=== PATIENT | female | born 1990 | race Hispanic/Latino ===

== ENCOUNTER 2018-05-13 07:51 | Inpatient (IN) | payer OTHER, SELFPAY ==
[2018-05-13] MEDS ORDERED: Promethazine HCl 25 MG/ML VIAL IM PRN (08:24)
[2018-05-13] MEDS ORDERED: NS / Oxytocin 40 units/1000ml 1,000 ML IV PRN (08:24)
[2018-05-13] MEDS ORDERED: Ibuprofen 800 MG TAB PO PRN (08:24)
[2018-05-13] MEDS ORDERED: Lidocaine 1% (PF) 30 ML VIAL SC PRN (08:24)
[2018-05-13] MEDS ORDERED: Ondansetron HCl/PF 4 MG/2 ML Vial IVP PRN ×2 (08:24→10:16)
[2018-05-13] MEDS ORDERED: Lidocaine 1% (PF) 30 ML VIAL ONE (08:26)
[2018-05-13] MEDS ORDERED: NS / Oxytocin 40 units/1000ml 0 ML ONE (08:26)
[2018-05-13] MEDS ORDERED: NS / Oxytocin 40 units/1000ml 1,000 ML ONE (08:27)
[2018-05-13] MEDS ORDERED: Lactated Ringer's 1,000 ML IV SCH (08:30)
[2018-05-13 08:49] LABS: Hemoglobin 12.5 g/dL (12.0-16.0); Mean Corpuscular HGB CONC 32.1 g/dL (32.0-36.0); Mean Corpuscular Hemoglobin 28.2 pg (27.0-31.0); Mean Corpuscular Volume 88.1 fL (78.0-98.0); Mean Platelet Volume 9.5 fL (7.4-10.4); Platelet Count 211 thou/uL (130-400); RBC Distribution Width 12.2 % (11.5-14.5); Red Blood Cell (RBC) Count 4.41 mill/uL (4.20-5.40); White Blood Cell (WBC) Count 9.9 thou/uL (4.8-10.8)
[2018-05-13 09:23] VITALS: BMI 31.2
[2018-05-13 09:32] LABS: Syphilis Antibody Nonreactive (Nonreactive); Syphilis Antibody Index 0.03 S/CO (<1.00 Non-Reactive)
--- NOTE | 2018-05-13 09:35 | PDOC.FPROB ---
FMR OB H&P: HPI - History of Present Illness Chief Complaint: Contractions Indentification: 27 year old History of Present Illness: 27 year old at 36.5 wks with ELYSSA of 06/05/2018 presents with contractions; onset two hours prior to arrival. Patient is from out of town. She received her care in [place]. She was in town for a [employer] function and was scheduled to return home today. Patient state that her has been uncomplicated. She has had three prior vaginal deliveries. Patient endorses moderate amount of vaginal bleeding. She denies vaginal discharge or LoF. Primary Care Physician: ALEJANDRA FMR OB H&P: Current - Care : 4 Para: 3 Gestational age: 36.5 wks Due date: 06/05/2018 - OB Labs Blood type: O RH: positive Antibody Screen: negative HIV: unknown RPR: unknown HepBsAg: unknown Quad screen: unknown Gonorrhea: unknown Chlamydia: unknown GBS: unknown FMR OB H&P: History - Past Medical History PMH: None - OB History OB History: x3 - Surgical History Sx History: Cholecystectomy Hernia repair x2 - Social History Social History: Denies alcohol, drug or tobacco use - Family History Family History: Noncontributory FMR OB H&P: Medications - Current Home Medications: Medication Instructions Recorded Confirmed Type 21/Iron Fu/Folic Acid 1 tablet PO DAILY 05/13/18 05/13/18 History [ Complete Caplet] Allergies/Adverse Reactions: Allergies Allergy/AdvReac Type Severity Reaction Status Date / Time No Known Allergies Allergy Unverified 05/13/18 08:31 FMR OB H&P: ROS - Review of Systems General: denies: fever/chills Eyes: denies: vision changes ENT: denies: nasal congestion, rhinorrhea Cardiovascular: denies: chest pain Gastrointestinal: denies: nausea, vomiting, diarrhea Genitourinary (Female): reports: vaginal pain, vaginal bleeding. denies: dysuria, vaginal discharge Neurologic: denies: seizures, loss of counsciousness Integumentary: denies: rash, lesions Hematologic/Lymphatic: denies: prolonged or excessive bleeding FMR OB H&P: Vital Signs - Maternal Vital signs: Vital Signs - First Documented Temp Resp BP 98.6 F 18 121/75 05/13/18 08:30 05/13/18 08:30 05/13/18 08:30 - Heart Tones Baseline: 140 Variability: moderate Acceleration: present Deceleration: absent Category: category 1 [place] contractions every: q4 min FMR OB H&P: Physical Exam - Physical Exam General: NAD, awake, alert and oriented HEENT: MMM, grossly normal vision, grossly normal hearing Heart: pulses present General: no respiratory distress Abdomen: soft, gravid Musculoskeletal: pulses present Neurological: no focal deficit Skin: no rash, capillary refill <2 seconds Lymphatic: no unusual bruising or bleeding Psychiatric: intact recent and remote memory, good judgement and insight, normal mood and affect - Pelvic Exam Vulva: normal hair distribution, no masses SVE: anterior lip/100/0 with bulging bag on presentation Presentation: Cephalic confirmed by bedside ultrasound FMR OB H&P: Results - Labs Lab results: Laboratory Results - last 24 hr 05/13/18 05/13/18 08:32 08:32 WBC 9.9 RBC 4.41 Hgb 12.5 Hct 38.9 MCV 88.1 MCH 28.2 MCHC 32.1 RDW 12.2 Plt Count 211 MPV 9.5 Blood Type O POSITIVE Antibody Screen NEGATIVE FMR OB H&P: A/P - Problem List (1) labor in third trimester Current Visit: Yes Status: Acute Code(s): O60.03 - LABOR WITHOUT DELIVERY, THIRD TRIMESTER Qualifiers: Fetus number: single or unspecified fetus (2) Current Visit: Yes Status: Acute Qualifiers: Weeks of gestation: 36 weeks Qualified Code(s): Z3A.36 - 36 weeks gestation of Assessment and Plan: 27 year old at 36.5 wks with ELYSSA of 06/05/2018 1. labor - Patient presented with contractions 2 hours prior to arrival - Patient noted to have bleeding on exam - Before cervical exam was performed, bedside ultrasound was done to confirm placental location; placenta right lateral and anterior. No concern for previa - Cervical exam performed by nurse and noted to be anterior lip/100/0 with bulging bag - Patient presenting from out of town without records available - Category I strip - Plan to [facility] with expectant management to follow 2. sIUP - See plan as above Disposition: Stable. Admit to L&D for expectant management. Discussion: Date/Time: 05/13/18 0932 This H&P was discussed with Dr. Mitchell who agrees with the above documentation and plan. Signature: Tawny Christian, PGY-2
[2018-05-13 09:40] LABS: Hep B Surf Ag Non-Reactive S/CO (NonReactive)
--- NOTE | 2018-05-13 09:49 | PDOC.OPDEL ---
OB Operative/Delivery Note Delivery Dr/Surgeon: Paula Christian Pre-Delivery Diagnosis: active labor Procedure/Post Delivery Dx: spontaneous vaginal delivery Weeks gestation: 36 (36.5 wks) Anesthesia: none - Findings A Sex: female - 1 min: 8 - 5 min: 9 - Additional Findings/Plan Placenta delivered: spontaneous Repaired Obstetrical Laceration: none Estimated blood loss: QBL 163 mL Compilations/Other Findings: Delivering Physician: Anahi Attending: Paula Procedure: Spontaneous Vaginal Delivery Anesthesia: None QBL: 163 mL Pre-op Diagnosis: 1. intrauterine in labor Post-op Diagnosis: 1. intrauterine , delivered Indications: A 27y/o female presents in active labor Delivery Note: This is 27yo F @ 36.5wks who delivered a viable F at 9:12 on 05/13/2018. Following an uneventful antepartum course, a vigorous female was delivered over an intact perineum in the occipitoanterior position. Anterior shoulder and then remainder of the body delivered. Nuchal cord x1, reduced. The head was held down and mouth and nares were bulb suctioned. Cord clamped and cut and cord blood collected. Placenta delivered intact with a 3 vessel cord noted. Fundal massage was performed and the fundus was firm. The cervix and vagina were inspected and found to be free of lacerations. Infant went to nursery in good condition for routine care. Apgars were 8/9 at 1 & 5 minutes, respectively. Patient tolerated delivery well and went to after routine recovery/care. Post delivery plan: routine recovery <Tawny Christian - Last Filed: 05/13/18 09:47> Attending Addendum - Attending Addendum Date/Time: 05/13/18 0958 I was present for the entire 2nd and 3rd stages of labor supervising Dr Christian for the spontaneous tsvd of Ms Almeida. <Kj Mitchell - Last Filed: 05/13/18 22:56>
[2018-05-13] MEDS ORDERED: Preparation H Ointment 28 GM TUBE PR PRN (10:16)
[2018-05-13] MEDS ORDERED: Milk Of Magnesia 30 ML UDCUP PO PRN (10:16)
[2018-05-13] MEDS ORDERED: Bisacodyl 10 MG SUPP PR PRN (10:16)
[2018-05-13] MEDS ORDERED: NS / Oxytocin 40 units/1000ml 1,000 ML IV SCH (10:16)
[2018-05-13] MEDS ORDERED: Lanolin Ointment 7 GM TUBE TOP PRN (10:16)
[2018-05-13] MEDS ORDERED: Adacel (T-DAP) 0.5 ML VIAL IM ONE (10:16)
[2018-05-13 11:41] LABS: HIV (1/2) Antibody/Antigen Non-Reactive (NonReactive); HIV 1/2 INDEX 0.08 S/CO (<1.00)
[2018-05-13] MEDS: Ibuprofen 800 MG TAB PO SCH ×2 (12:51→22:48)
[2018-05-13] MEDS: Docusate Calcium (SURFAK) 240 MG CAP PO SCH (22:48)
[2018-05-14] MEDS: Ibuprofen 800 MG TAB PO SCH ×3 (06:05→21:14)
--- NOTE | 2018-05-14 07:40 | PDOC.PP ---
Post Progress Note Post Day #: 1 Subjective: Patient doing well this AM. No significant overnight events. Lochia scant. Patient has been ambulating. PO intake tolerated: yes Flatus: yes Ambulation: yes Vital Signs (12 hours) Temp Pulse Resp BP 05/13/18 20:00 97.9 F 53 L 18 127/68 Weight Weight 85.275 kg - Physical Examination General: NAD Respiratory: non-labored breathing Abdominal: lochia (scant), no distention, appropriately TTP Extremities: negative homans (B) Skin: no rash Neurological: no gross focal deficits Psychiatric: A&Ox3, normal affect Result Diagrams: 05/13/18 08:32 Additional Labs: Post Labs Blood Type O POSITIVE 05/13/18 08:32 Hep Bs Antigen Non-Reactive S/CO (NonReactive) 05/13/18 08:32 (1) labor with delivery Code(s): O60.10X0 - LABOR W DELIVERY, UNSP TRIMESTER, UNSP Status: Acute Comment: 27 year old delivered PAGA female at 9:12 on 05/13/2018 via . No complications. - Routine PP care - Patient from out of town and plans on leaving for [place] once she is d/c'd - Pt will be d/c'd when ready for d/c (likely 48 hours fromd delivery) - GBS status unknown - Assessment/Plan Dispo: Anticipate d/c within next 24-48 hours.
[2018-05-14] MEDS: Docusate Calcium (SURFAK) 240 MG CAP PO SCH ×2 (08:15→21:13)
[2018-05-14] MEDS: Prenatal Vitamin 1 TAB PO SCH (13:49)
[2018-05-15] MEDS: Ibuprofen 800 MG TAB PO SCH ×2 (05:01→13:39)
--- NOTE | 2018-05-15 06:55 | PDOC.PP ---
Post Progress Note Post Day #: 2 Subjective: Patient doing well. No significant overnight events. Ambulating. Tolerating PO. Bonding well with . PO intake tolerated: yes Flatus: yes Ambulation: yes Vital Signs (12 hours) Temp Pulse Resp BP Pulse Ox 05/14/18 20:00 98.2 F 61 16 122/76 96 Weight Weight 85.275 kg - Physical Examination General: NAD Respiratory: non-labored breathing Abdominal: lochia (scant), no distention, appropriately TTP Fundus firm & at: umbilicus Extremities: negative homans (B) Skin: no rash Neurological: no gross focal deficits Psychiatric: A&Ox3, normal affect Result Diagrams: 05/13/18 08:32 Additional Labs: Post Labs Blood Type O POSITIVE 05/13/18 08:32 Hep Bs Antigen Non-Reactive S/CO (NonReactive) 05/13/18 08:32 (1) labor with delivery Code(s): O60.10X0 - LABOR W DELIVERY, UNSP TRIMESTER, UNSP Status: Acute Comment: 27 year old delivered PAGA female at 9:12 on 05/13/2018 via . No complications. - Routine PP care - Patient from out of town and plans on leaving for [place] once she is d/c'd - Plan for possible d/c today; pending infant discharge - Assessment/Plan Dispo: Stable. Plan for d/c today pending discharge plans.
[2018-05-15 08:11] VITALS: BP 118/74; TEMP 97.9
[2018-05-15] MEDS: Docusate Calcium (SURFAK) 240 MG CAP PO SCH (09:09)
[2018-05-15] MEDS: Prenatal Vitamin 1 TAB PO SCH (09:09)
== END 2018-05-15 13:45 | disposition home or self-care (01) | DRG 807 ==
LOC: L&D/OP 07:51 → L&D 08:52 → 3SW 12:37
PROVIDERS: ADMIT Obstetrics & Gynecology; ATTEND Obstetrics & Gynecology
PROC: 10E0XZZ Delivery of Products of Conception, External Approach (ICD-10-PCS; principal; 2018-05-13)
PROC: 10907ZC Drainage of Amniotic Fluid, Therapeutic from Products of Conception, Via Natural or Artificial Opening (ICD-10-PCS; 2018-05-13)
DX: O60.14X0 Preterm labor third trimester with preterm delivery third trimester, not applicable or unspecified (principal); Z37.0 Single live birth; Z3A.36 36 weeks gestation of pregnancy; O77.0 Labor and delivery complicated by meconium in amniotic fluid; O69.81X0 Labor and delivery complicated by cord around neck, without compression, not applicable or unspecified
CPT/HCPCS: 36415; 76815; 85027; 86762; 86780; 86850; 86900; 86901; 87340; 87389; 99285; J2001